=== PATIENT | male | born 1990 | race Caucasian/White ===

== ENCOUNTER → 2020-05-25 | Outpatient (CLI) | payer BC | END | disposition home or self-care (01) | LOC: LABWHC1 15:26 | PROVIDERS: ATTEND Pediatrics Pediatric Infectious Diseases | DX: Z03.818 Encounter for observation for suspected exposure to other biological agents ruled out (principal) | CPT/HCPCS: U0003; C9803 ==

== ENCOUNTER → 2020-05-29 | Outpatient (CLI) | payer BC | END | disposition home or self-care (01) | LOC: LABWHC1 14:06 | PROVIDERS: ATTEND Pediatrics Pediatric Infectious Diseases | DX: Z03.818 Encounter for observation for suspected exposure to other biological agents ruled out (principal) | CPT/HCPCS: U0003; C9803 ==

== ENCOUNTER 2024-11-15 04:45 | Emergency (ER) | payer BC ==
[2024-11-15 04:51] VITALS: TEMP 98.3
--- NOTE | 2024-11-15 05:37 | ED ---
General Adult HPI - General Chief complaint: Chest Pain Stated complaint: Chest Pain Time Seen by Provider: 11/15/24 05:00 Source: patient, family Mode of arrival: wheelchair Limitations: no limitations - History of Present Illness Initial comments: Patient is a previously well 34 y/o male with no significant PMH presenting today for chest pain. Patient has had a cough productive of sputum but no hemoptysis for the last few days. Woke up this morning at 3 AM with sharp chest pain radiating to his back and left shoulder. States his family has been dealing with URI symptoms for approx the last week. Pt was placed on steroids and an inhaler by urgent care, no antibiotics. Endorses low grade fevers. Pt is a nonsmoker, no history DVT/PE or ACS, no recent long distance travel, surgeries or hospitalization. 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 - Related Data Previous Rx's Medication Instructions Recorded Azithromycin [Zithromax Z Pack] 1 tab PO DIRECTED #6 tab 11/15/24 Allergies Allergy/AdvReac Type Severity Reaction Status Date / Time No Known Allergies Allergy Verified 11/15/24 04:51 Review of Systems ROS Statement: Those systems with pertinent positive or pertinent negative responses have been documented in the HPI. ROS Other: All systems not noted in ROS Statement are negative. Past Medical History Past Medical History: No Reported History History of Any Multi-Drug Resistant Organisms: None Reported Past Surgical History: Tonsillectomy Past Psychological History: No Psychological Hx Reported Smoking Status: Never smoker Past Alcohol Use History: Rare Past Drug Use History: None Reported General Exam - General Exam Comments Initial Comments: PE: CONSTITUTIONAL: In moderate distress, though not ill-appearing or toxic-appear ing SKIN: Warm, dry, no jaundice, hives or petechiae EYES: Pupils are equally round, extraocular movements intact without nystagmus, clear conjunctiva, non-icteric sclera HENT: Normocephalic, atraumatic, moist mucus membranes, oropharynx clear without exudates NECK: , Full range of motion, normal appearance PULMONARY: Decreased excursion secondary to pain, rales in the right midlung field, left lower lung field, no stridor, wheezes or crackles, tachypnea CARDIOVASCULAR: Tachycardia, regular rate, rhythm, normal S1 and S2. No appreciated murmurs, rubs or gallops. Strong radial pulses with intact distal perfusion. No lower extremity edema GASTROINTESTINAL: Soft, nondistended, active bowel sounds MUSCULOSKELETAL: Extremities have no gross deformity, no edema, redness, or swelling. No calf swelling NEUROLOGIC:_a/o x 3, GCS 15, normal mentation and speech. Moves all extremities x 4 without motor or sensory deficit PSYCHIATRIC:_normal mood and affect, thought process is clear and linear Limitations: no limitations Course Vital Signs 11/15/24 11/15/24 11/15/24 04:49 07:02 07:39 Temperature 98.3 F Pulse Rate 117 H 98 Respiratory 18 18 Rate Blood Pressure 130/74 135/72 O2 Sat by Pulse 96 94 L 97 Oximetry 11/15/24 08:00 Temperature Pulse Rate 95 Respiratory 20 Rate Blood Pressure 131/80 O2 Sat by Pulse 98 Oximetry EKG Findings - EKG Comments: EKG Findings:: EKG interpretation, sinus tachycardia, intervals within acceptable limits, normal axis, no significant ST elevations or depressions, no arrhythmia Medical Decision Making - Medical Decision Making Was pt. sent in by a medical professional or institution (, PA, CLINIC MD ASSOCIATE, urgent care, hospital, or snf...) When possible be specific @ -No Did you speak to anyone other than the patient for history (EMS, parent, family, police, friend...)? What history was obtained from this source @Additional history and patient's , states that patient and family have been dealing with upper respiratory infection type symptoms over the course of the last week Did you review nursing and triage notes (agree or disagree)? Why? @ -I reviewed and agree with nursing and triage notes Were old charts reviewed (outside hosp., previous admission, EMS record, old EKG, old radiological studies, urgent care reports/EKG's, snf records)? Report findings @ -Medical records not reviewednone available for review Differential Diagnosis (chest pain, altered mental status, abdominal pain women, abdominal pain men, vaginal bleeding, weakness, fever, dyspnea, syncope, headache, dizziness, GI bleed, back pain, seizure, CVA, palpatations, mental health, musculoskeletal)? Differential Chest Pain: Stable Angina, Unstable Angina, STEMI, NSTEMI Aortic Dissection, pericarditis, pleurisy, chostochondirits, Pneumothorax, Musculoskeletal, Esophageal Spasm GERD, Cholecystitis, Pancreatitis, Zoster, this is not meant to be an all- inclusive list. EKG interpreted by me (3pts min.). @ -As above X-rays interpreted by me (1pt min.). I personally reviewed chest x-ray, I see no evidence of pneumothorax or mediastinal widening I agree with radiologist interpretation, Radiologist does note retrocardiac opacity, CT interpreted by me (1pt min.). @ -personally reviewed CT PE study, I see no evidence of pulmonary embolism though do note bilateral lung consolidations, I agree with radiologist interpretation, of note radiologist comments on small cysts on liver and kidneys no follow-up recommended U/S interpreted by me (1pt. min.). @ -None done What testing was considered but not performed or refused? (CT, X-rays, U/S, labs)? Why? @ -None What meds were considered but not given or refused? Why? @ -None Did you discuss the management of the patient with other professionals (professionals i.e. , PA, CLINIC MD ASSOCIATE, lab, RT, psych nurse, director of social media marketing, seed corn manager production, teacher, district resource officer, child support case officer)? Give summary @ -No Was smoking cessation discussed for >3mins.? @ -No Was critical care preformed (if so, how long)? @ -No Were there social determinants of health that impacted care today? How? ( Homelessness, low income, unemployed, alcoholism, drug addiction, transportation, low edu. Level, literacy, decrease access to med. care, fpc, rehab)? @ -No Was there de-escalation of care discussed even if they declined (Discuss DNR or withdrawal of care, Hospice)? @ -No What co-morbidities impacted this encounter? (DM, HTN, Smoking, COPD, CAD, Cancer, CVA, ARF, Chemo, Hep., AIDS, mental health diagnosis, sleep apnea, morbid obesity)? @ -None Was patient admitted / discharged? Hospital course, mention meds given and route, prescriptions, significant lab abnormalities, going to OR and other pertinent info. Discharged-patient is a pleasant 34-year-old gentleman with a history of presenting today for sudden onset left-sided chest pain rating to his back and shoulder. On my assessment he appears to be in moderate distress secondary to pain, mildly tachypneic, remaining vital signs stable, no hypoxia. Patient appears to have rales in bilateral lung valente. Given the degree of patient's distress and pain, Differentials included pneumothorax and pulmonary embolism. A stat bedside chest x-ray was ordered to rule out pneumothorax before obtaining CT PE study. Chest x-ray was personally reviewed by myself and did not show pneumothorax. Discussed with patient and plan for CT PE study, pain medications, labs. They are agreeable with plan of care. Imaging was significant for findings concerning for multifocal pneumonia. Labs are significant for leukocytosis with a white blood cell count 19.17. Rocephin and azithromycin ordered. On reassessment patient's pain is much improved and appears more comfortable. Discussed with patient and findings on chest x- ray and plan for antibiotic administration and anticipated discharge with oral antibiotics. They are agreeable with plan of care. Patient did ambulate through the ED without hypoxia or increased work of breathing prior to discharge. In my medical judgment there is currently no evidence of an immediate life- threatening or surgical condition. Discharge is therefore indicated at this time. Discharge treatment instructions, follow up instructions, and appropriate emergency department return precautions were discussed with the patient and/or medical decision maker. Patient and/or medical decision maker expressed understanding of and agreed with the treatment plan, follow up instructions, and emergency department return precaution. All patient's and/or medical decision maker's questions were answered. The patient was instructed to return to the ED for any changes in symptoms, persistent symptoms, inability to obtain proper follow-up or for any further concerns. Patient received verbal and written instructions for this condition. Undiagnosed new problem with uncertain prognosis? @ -No Drug Therapy requiring intensive monitoring for toxicity (Heparin, Nitro, Insulin, Cardizem)? @ -No Were any procedures done? @ -No Diagnosis/symptom? Multi focal pneumonia Acute, or Chronic, or Acute on Chronic? Acute Uncomplicated (without systemic symptoms) or Complicated (systemic symptoms)? @Uncomplicated Side effects of treatment? @ -No Exacerbation, Progression, or Severe Exacerbation? @ -No Poses a threat to life or bodily function? How? (Chest pain, [place], PA, pneumonia, PE, COPD, DKA, ARF, appy, cholecystitis, CVA, Diverticulitis, Homicidal, Suicidal, threat to staff... and all critical care pts) @ -No, none at time of discharge - Lab Data Result diagrams: 11/15/24 05:36 11/15/24 05:36 Lab Results 11/15/24 11/15/24 11/15/24 Range/Units 05:36 05:36 05:36 WBC 19.17 H (4.50-10.00) 10*3/uL RBC 4.90 (4.40-5.60) 10*6/uL Hgb 15.0 (13.0-17.0) g/dL Hct 44.1 (39.6-50.0) % MCV 90.0 (80.0-97.0) fL MCH 30.6 (27.0-32.0) pg MCHC 34.0 (32.0-37.0) g/dL Plt Count 184 (140-440) 10*3/uL MPV 11.1 (9.5-12.2) fL Immature Gran % (Auto) 0.5 % Neutrophils % 84.9 % Lymphocytes % 9.5 % Monocytes % 4.9 % Eosinophils % 0.0 % Basophils % 0.2 % Immature Gran # 0.09 H (0.00-0.04) 10*3/uL Neutrophils # 16.28 H (1.80-7.70) 10*3/uL Lymphocytes # 1.83 (0.90-5.00) 10*3/uL Monocytes # 0.94 (0.20-1.00) 10*3/uL Eosinophils # 0.00 L (0.04-0.35) 10*3/uL Basophils # 0.03 (0.00-0.10) 10*3/uL PT 10.7 (10.0-12.5) sec INR 1.0 (<1.2) APTT 21.1 L (22.0-30.0) sec Sodium 136 L (137-145) mmol/L Potassium 4.3 (3.5-5.1) mmol/L Chloride 99 (98-107) mmol/L Carbon Dioxide 31 H (22-30) mmol/L Anion Gap 6 mmol/L BUN 18 (9-20) mg/dL Creatinine 1.06 (0.66-1.25) mg/dL Est GFR (CKD-EPI)AfAm >90 (>60 ml/min/1.73 sqM) Est GFR (CKD-EPI)NonAf >90 (>60 ml/min/1.73 sqM) Glucose 139 H (74-99) mg/dL Calcium 9.6 (8.4-10.2) mg/dL Magnesium 1.7 (1.6-2.3) mg/dL Total Bilirubin 1.0 (0.2-1.3) mg/dL AST 24 (17-59) U/L ALT 22 (4-49) U/L Alkaline Phosphatase 57 (38-126) U/L Troponin I (0.000-0.034) ng/mL NT-Pro-B Natriuret Pep pg/mL Total Protein 6.6 (6.3-8.2) g/dL Albumin 4.0 (3.5-5.0) g/dL 11/15/24 11/15/24 Range/Units 05:36 05:36 WBC (4.50-10.00) 10*3/uL RBC (4.40-5.60) 10*6/uL Hgb (13.0-17.0) g/dL Hct (39.6-50.0) % MCV (80.0-97.0) fL MCH (27.0-32.0) pg MCHC (32.0-37.0) g/dL Plt Count (140-440) 10*3/uL MPV (9.5-12.2) fL Immature Gran % (Auto) % Neutrophils % % Lymphocytes % % Monocytes % % Eosinophils % % Basophils % % Immature Gran # (0.00-0.04) 10*3/uL Neutrophils # (1.80-7.70) 10*3/uL Lymphocytes # (0.90-5.00) 10*3/uL Monocytes # (0.20-1.00) 10*3/uL Eosinophils # (0.04-0.35) 10*3/uL Basophils # (0.00-0.10) 10*3/uL PT (10.0-12.5) sec INR (<1.2) APTT (22.0-30.0) sec Sodium (137-145) mmol/L Potassium (3.5-5.1) mmol/L Chloride (98-107) mmol/L Carbon Dioxide (22-30) mmol/L Anion Gap mmol/L BUN (9-20) mg/dL Creatinine (0.66-1.25) mg/dL Est GFR (CKD-EPI)AfAm (>60 ml/min/1.73 sqM) Est GFR (CKD-EPI)NonAf (>60 ml/min/1.73 sqM) Glucose (74-99) mg/dL Calcium (8.4-10.2) mg/dL Magnesium (1.6-2.3) mg/dL Total Bilirubin (0.2-1.3) mg/dL AST (17-59) U/L ALT (4-49) U/L Alkaline Phosphatase (38-126) U/L Troponin I <0.012 (0.000-0.034) ng/mL NT-Pro-B Natriuret Pep 154 pg/mL Total Protein (6.3-8.2) g/dL Albumin (3.5-5.0) g/dL Disposition Clinical Impression: Multifocal pneumonia Disposition: HOME SELF-CARE Condition: Good Instructions (If sedation given, give patient instructions): Bacterial Pneumonia (ED) Additional Instructions: Every disease is a spectrum and a small chance still exists that a serious condition could develop, for this reason, please monitor yourself closely for new, changing or worsening symptoms, symptoms that do not begin to improve over the course of the next 48 hours, fever more than 4 days, systems that persist beyond the completion of antibiotics, pain you cannot control at home, difficulty in breathing, coughing up blood or swelling in your legs, new chest pain, inability to tolerate/keep down fluids or your medications, inability to follow up with outpatient providers as instructed and should you experience these symptoms or should you have any further concerns for your wellbeing please return to the ED or call 911 immediately. Your pain can be treated with ibuprofen and acetaminophen. You can take up to 400-600 mg of ibuprofen (Advil, Motrin) 3 times daily (every 8 hours) but can also use lower doses if this relieves your pain. Some people prefer naproxen (Aleve, Naprosyn) which can be taken in doses of 500 mg up to twice a day. Do not take both of these medicines together, and do not combine either with ketorolac (Toradol), meloxicam (Mobic), or indomethacin (Tivorbex). Some people can develop stomach discomfort with higher doses of either ibuprofen or naproxen, if this develops decrease your dose or stop taking it. If you need to take this dose daily for more than a week, please schedule an appointment for re-evaluation with your PCP. Please take these medications with food. You can take up to 1000 mg of acetaminophen (Tylenol) every 6 hours. Be careful as this is included in some medicines like Nyquil, [place], Percocet, Vicodin, STANBACK, Goody's Powders, and Excedrin. You can also use lidocaine patches for topical pain. You can purchase 4% patches over the counter at most drug stores. These can be helpful for pain from your muscles or bones. PLEASE call your primary care physician as soon as possible to arrange / discuss plan for followup appointment. Appointment in the next 1-3 days is strongly encouraged if possible. PLEASE let us know here before you leave if there is anything further we can do to be of any assistance. Take care and feel Better! Prescriptions: Azithromycin [Zithromax Z Pack] 1 tab PO DIRECTED #6 tab Is patient prescribed a controlled substance at d/c from ED?: No Referrals: Jose Carlos Singer DO [Primary Care Provider] - 1-2 days
[2024-11-15] MEDS: ONDANSETRON 4 MG/2 ML VIAL IVP STA (05:49)
[2024-11-15] MEDS: ASPIRIN 81 MG PO STA (05:50)
[2024-11-15] MEDS: MORPHINE SULFATE 2 MG/ML SYRINGE IVP STA (05:50)
[2024-11-15] MEDS: ACETAMINOPHEN IV (For NPO) 1,000 MG in EMPTY BAG 1 BAG IVPB STA (05:51)
[2024-11-15 06:02] LABS: Basophils # (A) 0.03 10*3/uL (0.00-0.10); Basophils % (A) 0.2 %; HCT 44.1 % (39.6-50.0); Lymphocytes # (A) 1.83 10*3/uL (0.90-5.00); Lymphocytes % (A) 9.5 %; MCH 30.6 pg (27.0-32.0); Mean Platelet Volume 11.1 fL (9.5-12.2); Monocytes # (A) 0.94 10*3/uL (0.20-1.00); Monocytes % (A) 4.9 %; Neutrophils # (A) 16.28 10*3/uL (1.80-7.70); Neutrophils % (A) 84.9 %; Platelet Count 184 10*3/uL (140-440); RDW 12.3 % (11.5-14.5); WBC 19.17 10*3/uL (4.50-10.00)
[2024-11-15 06:15] LABS: ALT 22 U/L (4-49); AST 24 U/L (17-59); African American GFR (CKD) >90 (>60 ml/min/1.73 sqM); Alkaline Phosphatase 57 U/L (38-126); Anion Gap 6 mmol/L; Blood Urea Nitrogen 18 mg/dL (9-20); Calcium 9.6 mg/dL (8.4-10.2); Carbon Dioxide 31 mmol/L (22-30); Chloride 99 mmol/L (98-107); Glucose 139 mg/dL (74-99); Magnesium 1.7 mg/dL (1.6-2.3); Non-African American GFR(CKD) >90 (>60 ml/min/1.73 sqM); Potassium 4.3 mmol/L (3.5-5.1); Sodium 136 mmol/L (137-145); Total Protein 6.6 g/dL (6.3-8.2)
[2024-11-15 06:37] LABS: Prothrombin Time 10.7 sec (10.0-12.5)
[2024-11-15 06:49] LABS: Partial Thromboplastin Time 21.1 sec (22.0-30.0)
[2024-11-15] MEDS: cefTRIAXone IN SWFI 1,000 MG/10 ML SYRINGE IVP STA (06:51)
[2024-11-15] MEDS: AZITHROMYCIN 500 MG in SODIUM CHLORIDE 0.9% 250 ML IVPB STA (06:51)
--- NOTE | 2024-11-15 06:58 | CT ---
EXAMINATION TYPE: CT chest angio for PE CT DLP: 402.1 mGycm, Automated exposure control for dose reduction was used. DATE OF EXAM: 11/15/2024 5:54 AM COMPARISON: Chest radiograph from same day. CLINICAL INDICATION:Male, 34 years old with history of sharp CP, radiates to left back, tachy; Patien t c/o left chest/shoulder/back pain x 2 hours. TECHNIQUE/CONTRAST: CTA scan of the thorax is performed with IV Contrast, patient injected with 100 mL of Isovue 370, pul monary embolism protocol. MIP images are created and reviewed. FINDINGS: Pulmonary Artery: There is no evidence for a filling defect within the pulmonary vasculature to sugge st acute pulmonary embolism. The pulmonary artery is of normal size. Lungs/Pleura: No pleural effusion or pneumothorax. Multifocal patchy consolidative opacities within t he left lower lobe and medial aspect of the right middle lobe. Airway: Large airways are patent. Heart: Size within normal limits.No pericardial effusion. No significant coronary artery calcificatio ns. Vasculature: No evidence of aortic aneurysm. Mediastinum: No evidence of adenopathy. Musculoskeletal: No acute osseous abnormalities Soft Tissues: Unremarkable. Lower neck: No significant findings. Upper Abdomen: Few scattered subcentimeter hypodense foci within the liver which are too small to acc urately characterize but likely represent cysts. Subcentimeter left renal cortical hypodensity which is too small to characterize but likely represents a cyst. No follow up recommended.. IMPRESSION: 1. No evidence of pulmonary embolism. 2. Multifocal patchy consolidative opacities within the left lower lobe and to a lesser extent within the right middle lobe. Findings consistent with multifocal pneumonia. [facility], , 11/15/2024 6:56 AM
--- NOTE | 2024-11-15 07:00 | XR ---
EXAMINATION TYPE: XR chest 1V portable DATE OF EXAM: 11/15/2024 5:37 AM COMPARISON: CTA chest of the same date. TECHNIQUE: XR chest 1V portable Portable AP radiograph of the chest. CLINICAL INDICATION:Male, 34 years old with history of cough; FINDINGS: Lungs/Pleura: No pleural effusion or pneumothorax. Retrocardiac opacity is better appreciated on curr ent CTA. Pulmonary vascularity: Unremarkable. Heart/mediastinum: Cardiomediastinal silhouette is unremarkable. Musculoskeletal: No acute osseous pathology. IMPRESSION: Retrocardiac opacity related to pneumonia is better appreciated on current CTA. [facility], , 11/15/2024 6:58 AM
[2024-11-15] MEDS: KETOROLAC 15 MG/ML 1 ML VIAL IVP STA (07:45)
[2024-11-15] MEDS: SODIUM CHLORIDE 0.9% 1,000 ML IV ONE (07:45)
[2024-11-15 08:22] VITALS: BP 131/80; PULSE 95; RESP 20
== END 2024-11-15 08:37 | disposition home or self-care (01) ==
LOC: EC 04:45
DX: J18.9 Pneumonia, unspecified organism (principal)
CPT/HCPCS: 36415; 93005; 83880; 80053; 83735; 84484; 85025; 85610; 85730; 71045; 71275; 99285; 96365; 96375; 96361; J2405; J0456; J0696; J2270; J0131; J1885; Q9967

== ENCOUNTER → 2024-11-23 | Outpatient (CLI) | payer BC ==
--- NOTE | 2024-11-23 14:11 | XR ---
EXAMINATION TYPE: XR chest 2V DATE OF EXAM: 11/23/2024 2:03 PM COMPARISON: 11/15/2024 CLINICAL INDICATION: Male, 34 years old with history of J18.9 PNEUMONIA, UNSPECIFIED ORGANISM, Chest pain TECHNIQUE: XR chest 2V views of the chest are obtained. FINDINGS: There is no focal air space opacity. No evidence for pneumothorax. No pleural effusion. The cardiac silhouette size is within normal limits. The osseous structures are grossly intact. IMPRESSION: 1. No acute cardiopulmonary process. [facility], , 11/23/2024 2:09 PM
== END | disposition home or self-care (01) ==
LOC: RADXRMAIN 13:51
PROVIDERS: ATTEND Family Medicine
DX: J18.9 Pneumonia, unspecified organism (principal)
CPT/HCPCS: 71046